=== PATIENT | female | born 1990 | race Caucasian/White ===

== ENCOUNTER 2016-10-06 12:35 | Emergency (ER) | payer BC, OTHER ==
[~2016-10-06] VITALS: Ht 165.1 cm; Wt 64.3 kg
[~2016-10-06 12:35] MED LIST: ENDOCET 5-3251 EACH PO; MOBIC15 MG PO; MOTRIN800 MG PO; NOHOMEMEDS; PERCOCET 5/31 TABLET PO; VIBRAMYCIN100 MG PO
[2016-10-06 13:26] LABS: HEMATOCRIT 36.1 % (36.0-46.0); MCH 24.6 PG (29.0-34.0); MCV 79.2 FL (83-99); MEAN PLAT.VOLUME 12.2 uM^3 (9.5-12.4); PLATELET COUNT 213 K/uL (156-360); RBC DIS.WIDTH-CV 14.1 % (11.8-14.6); RBC DIS.WIDTH-SD 40.7 % (39-53); RED BLOOD COUNT 4.56 M/uL (3.80-5.20); WHITE BLOOD COUNT 5.9 K/uL (4.1-10.2)
[2016-10-06 13:36] LABS: CHLORIDE 105 mEq/L (99-109); POTASSIUM 3.7 mEq/L (3.7-5.4); SODIUM 139 mEq/L (136-147)
[2016-10-06 13:37] LABS: GLUCOSE 83 mg/dL (70-99)
[2016-10-06 13:39] LABS: ANION GAP 9 MEQ/L (2-14)
[2016-10-06 13:41] LABS: GFR ESTIMATE (CALCULATED) > 59 mL/min/
[2016-10-06 13:42] LABS: UREA NITROGEN (BUN) 7 mg/dL (9-23)
[2016-10-06 13:57] LABS: ADD MIUA? YES; BILIRUBIN NEGATIVE; BLOOD NEGATIVE; COLOR AMBER ((YELLOW)); GLUCOSE (STRIP) NEGATIVE; KETONES NEGATIVE; LEUKOCYTES NEGATIVE; NITRITE NEGATIVE; PROTEIN (STRIP) 30; SPECIFIC GRAVITY 1.027 (1.000-1.030); UROBILINOGEN 0.2 MG/DL (0.2-1.0)
[2016-10-06 14:35] LABS: BACTERIA 1+ /HPF; CASTS NONE SEEN /LPF; CRYSTALS NONE SEEN; EPITHELIAL CELLS 1+ /HPF; MUCUS 2+ /LPF; RED BLOOD CELLS NONE SEEN /HPF (0-5)
[2016-10-06] MEDS ORDERED: PREDNISONE20 MG PO ×2 (14:47→14:50)
[2016-10-06 15:14] VITALS: BP 135/86
== END 2016-10-06 15:08 | disposition home or self-care (01) ==
LOC: EME 12:35
PROVIDERS: Nurse Practitioner Family
DX: R20.0 Anesthesia of skin (principal); R51 Headache; Z87.891 Personal history of nicotine dependence
CPT/HCPCS: 70450; 80048; 81003; 85027; 93005; 99281; 99284